=== PATIENT | female | born 1940 | race Caucasian/White ===

== ENCOUNTER 2017-12-30 00:58 | Outpatient (CLI) | payer OTHER, SELFPAY ==
--- NOTE | 2017-12-30 07:15 | DI.RAD_ITS ---
SYMPTOMS/DIAGNOSIS: TENDINITIS LT ROTATOR CUFF, M75.82, SHOULDER LESION FLUOROSCOPY OF THE LEFT SHOULDER: Fluoroscopy Time: .02 min Fluoroscopy was provided for Dr. Altamirano while performing a left shoulder injection. A single hardcopy image shows a needle projecting at the upper glenohumeral joint and injection of contrast. Severe degenerative changes of the glenohumeral joint are also seen. Please see procedure note for details.
[2017-12-30] MEDS: Omnipaque 300 MG/ML 10 ML BTL 1.5 ML IJ (11:06)
[2017-12-30] MEDS: Bupivacaine 0.5% Pres-Free 10 ML VIAL 5 ML IJ (11:07)
[2017-12-30] MEDS: methylPREDNISolone ACETATE 80 MG/ML VIAL IM (11:08)
--- NOTE | 2017-12-30 12:19 | W.PROCNOTE ---
Date of service: 12/30/17 Time of Service: 09:19 Procedure Note Date of procedure: 12/30/17 Procedure: Left Shoulder Injection Surgeon/Proceduralist/Physician: Srinivas Altamirano Procedure Diagnosis: Left glenohumeral arthritis Procedure Indications: Lisa has had persistent pain of the LEFT shoulder. Noninvasive measures have been tried. She has had a previous intra-articular shoulder injection which provided good relief. Due to recurrence of pain, an injection under fluoroscopy was recommended. I had discussed the risks of the procedure and the patient elected to proceed. Procedure Description: Lisa was greeted in the flouroscopy room. The correct side was identified and the consent was reviewed with the patient and signed. The patient was then placed in the supine position on the fluoroscopy table. The LEFT shoulder was then prepped with Chloraprep. The anterior injection starting point was identiifed by bony landmarks and fluoroscopy. The skin and soft tissue in the tract of the injection was anesthetized with 1% Lidocaine. A spinal needle was then inserted deep into the shoulder joint at the level of the recess between the glenoid and superior humeral head. A small amount of Omnipaque solution was injected to confirm intraarticular placement. Once confirmed, the shoulder was injected with 4cc of 0.5% Bupivicaine and 80mg of Depo-Medrol. A bandaid was placed on the injection site. The patient tolerated the procedure well and noted improvement in pre-injection pain.
== END 2017-12-30 01:18 ==
PROVIDERS: PCP Family Medicine; Visit Provider Student in an Organized Health Care Education/Training Program
DX: M25.512 Pain in left shoulder (principal); M75.82 Other shoulder lesions, left shoulder
CPT/HCPCS: 20610; 77002; J1040

== ENCOUNTER 2018-01-05 00:59 | Outpatient (CLI) | payer OTHER, SELFPAY ==
--- NOTE | 2018-01-05 11:57 | DI.MAMMO_ITS ---
SYMPTOMS/DIAGNOSIS: SCREENING, Z12.31 MAMMOGRAM: Mammograms were interpreted according to the usual protocol including computer analysis with CAD system, tomosynthesis and C view imaging. The breast tissue is heterogeneously radiodense which lowers the sensitivity of the study. There is no dominant mass. There are no suspicious calcifications and there has been no significant interval change when compared with prior images. SUMMARY: No evidence of malignancy, Category I, yearly screening mammography is recommended. Breast density Category C. MQSA ASSESSMENT OF FINDINGS: Negative. Category 1. Patient will receive a letter notifying them of these results. Bi-RADS category C. The breasts are heterogeneously dense, which may obscure small masses.
== END 2018-01-05 01:19 ==
PROVIDERS: PCP Family Medicine; Visit Provider Family Medicine
DX: Z12.31 Encounter for screening mammogram for malignant neoplasm of breast (principal)
CPT/HCPCS: 77063; 77067

== ENCOUNTER 2018-07-29 11:41 | Outpatient (CLI) | payer OTHER, SELFPAY ==
[2018-07-29 13:38] LABS: Vitamin B12 693 pg/mL (193-986)
== END 2018-07-29 12:01 ==
PROVIDERS: PCP Family Medicine; Visit Provider Family Medicine
DX: E53.8 Deficiency of other specified B group vitamins (principal)
CPT/HCPCS: 36415; 82607

== ENCOUNTER 2018-08-18 16:31 | Emergency (ER) | payer OTHER, SELFPAY ==
[2018-08-18 16:56] VITALS: BP 134/76; PULSE 76; RESP 16; TEMP 37.1; O2SAT 97
--- NOTE | 2018-08-18 17:05 | DI.US_ITS ---
SYMPTOM/DIAGNOSIS: FOCAL AREA OF REDNESS, SWELLING, PAIN LT LEG, ? CLOT, H/O SUPERFICIAL PHLEBITIS LEFT LOWER EXTREMITY ULTRASOUND: The deep veins of the left lower extremity show normal compression, augmentation and color flow. There is no evidence of a deep venous thrombus in the left lower extremity. There is non compressible echogenic thrombus seen in the short saphenous vein of the left lower extremity. Soft tissues are unremarkable IMPRESSION: 1. No evidence of a deep venous thrombus in the left lower extremity. 2. Superficial thrombophlebitis.
--- NOTE | 2018-08-18 17:06 | W.ED.GENAD ---
Discharge Plan Disposition Patient Disposition: HOME Condition: Good Discharge Details Chief Complaint: Vascular Clinical Impression: Acute superficial venous thrombosis of left lower extremity Primary Care Provider: iLliya Pedraza ED Provider: Cong Rosas Home Meds and New Rx's Prescriptions: No Action acyclovir 200 mg capsule 200 mg PO 5x/day PRNRF: 0 omeprazole 20 mg capsule,delayed release(DR/EC) 20 mg PO DAILY RF: 0 ADVIL 200 MG capsule 2 tab PO PRN RF: 0 Centrum Silver 1 EACH tablet 1 ea PO DAILY RF: 0 melatonin-pyridoxine (vit B6) 1 TAB tablet 1 tab PO HS PRN RF: 0 Discharge Instructions Instructions: Superficial Thrombophlebitis (ED) Additional Instructions: Please keep a warm compress on your leg as often as possible. Please keep it elevated and wrapped gently with an Alli wrap. Please take a daily 325 aspirin for the next month. Please follow-up closely with your primary care provider in the next week. If you notice any worsening of your symptoms, or any new symptoms such as vomiting, diarrhea, fever, chills, shortness of breath, chest pain, numbness, weakness, or fainting , please return immediately to the emergency department for reevaluation. Please follow up with your primary care provider as soon as possible for reassessment and reevaluation. As always, it was a pleasure participating in your medical care today. Referrals: Liliya Pedraza MD, [place] [Primary Care Provider] - Discharge Data Discharge Date/Time-TO BE ENTERED AT DEPARTURE: 08/18/18 18:03 Medical Decision Making This is a very pleasant 78-year-old female who presents for evaluation of blood clot. The patient had a left shoulder surgery performed at [facility] 1 week ago. In the last 24 hours she developed a small amount of redness, swelling and tenderness over 1 of her superficial varicosities over the left medial thigh. She has had a superficial clot in the past, and states that this feels identical. She is never been on a blood thinner in spite of her previous thrombophlebitis episodes. We will get an ultrasound to rule out any acute clot. There is no DVT, I feel she can be treated conservatively with aspirin, warm compresses, and elevation. With no clinical symptoms of fever, chills, tachycardia, or clinical evidence of significant cellulitis do not think that antibiotics are indicated at this time. Ultrasound results of the lower extremities show evidence of superficial clot at this time with no evidence of deep vein thrombosis. Patient continues to remain afebrile, with no tachycardia or chills. No deep calf tenderness. No current clinical indication for antibiotics at this time. Will recommend continued warm compresses, elevation, and gentle Alli wrap. We discussed red flags which to return including worsening of the redness, shortness of breath, or other complaints. We will recommend daily aspirin for the next month. I have extensively reviewed the treatment plan and discharge instructions with the patient and their family. I have addressed all patient concerns at this time. The patient and family was made aware of what symptoms to monitor for that would warrant a return to the emergency department. Discussed the plan with the patient and family, they demonstrate verbal understanding and agreement with our assessment and plan at this time. EXAM DATE/TIME: 08/18/2018 5:36 PM CLINICAL HISTORY: 78 years old, female; Pain; Leg, lower; Left TECHNIQUE: Imaging protocol: Real-time Duplex ultrasound of the Left Lower Extremity with 2-D farias scale, color Doppler flow and spectral waveform analysis. Limited exam focused on the left lower extremity veins. COMPARISON: No relevant prior studies available. FINDINGS: Left deep veins: Unremarkable. The common femoral, femoral, proximal profunda femoral and popliteal veins are patent without thrombus. Normal Doppler waveforms. Normal compressibility and/or augmentation response. Left superficial veins: Noncompressible echogenic thrombus is present within the short saphenous veins of the left lower leg. Soft tissues: Unremarkable. IMPRESSION: 1. No evidence of deep vein thrombosis. 2. Superficial thrombus in the short saphenous vein. Thank you for allowing us to participate in the care of your patient. HPI General Date/Time Provider Initiated Documentation: 08/18/18 16:35. HPI Narrative: This is a 78-year-old female with no significant past medical history except for a left shoulder repair performed at [facility] 1 week ago who presents today with left leg swelling. She states that the symptoms began less than 24 hours ago on her medial left calf. She has had superficial thrombophlebitis in the past, and states that this feels nearly identical. She has never been on blood thinners but has occasionally taking a daily aspirin when she has her superficial thrombophlebitis. She denies any complaints of PE, she denies any complaints of chest pain, shortness of breath, fatigue, lightheadedness, syncope or dizziness. She has no other complaints at this time. She is not currently on any blood thinners. She denies any fever or chills Related Data Home Medications Medication Instructions Recorded Confirmed Advil 2 tab PO PRN 07/05/12 08/18/18 melatonin-pyridoxine (vit B6) 1 tab PO HS PRN 06/22/13 08/18/18 Centrum Silver 1 ea PO DAILY 11/11/15 08/18/18 acyclovir 200 mg capsule 200 mg PO 5x/day PRN tab-cap 07/27/18 08/18/18 omeprazole 20 mg capsule,delayed 20 mg PO DAILY cap 07/27/18 08/18/18 release Allergies Allergy/AdvReac Type Severity Reaction Status Date / Time No Known Allergies Allergy Unverified 07/27/18 10:08 General Stated Complaint: Vascular JOSE: 3 Review of Systems Review of Systems All systems reviewed & are unremarkable except as noted in HPI and below PFSH Medical History Vitamin B 12 deficiency (Chronic 08/30/14) Trochanteric bursitis of left hip (Chronic 03/31/17) Tendinitis of left rotator cuff (Chronic 03/03/17) Osteopenia (Chronic) Incomplete tear of left rotator cuff (Chronic 09/28/16) Hyperlipidemia (Chronic 07/12/12) Hiatal hernia (Chronic 11/26/15) Barretts esophagus (Chronic 09/30/10) Arthritis of left shoulder region (Chronic 09/28/16) Carpal tunnel syndrome (Resolved) Inguinal lymphadenopathy (Resolved 06/11/17) Memory impairment (Resolved) Pain (Resolved) Verrucae vulgaris (Resolved) Alvarado's esophagus Gastroesophageal reflux disease Hiatal hernia Hyperlipidemia INTERNAL HEMORRHOIDS GRADE I Joint pain Memory impairment Osteopenia SIGMOID DIVERTICULOSIS Surgical History H/O cataract removal with insertion of prosthetic lens (Resolved) EGD - IV Sedation (11/26/15) Extraction of cataract (~2011) Open Carpal Tunnel release (~2008) Family History Mother Heart disease Myocardial infarction Father Heart disease Hypercholesterolemia Hyperlipidemia Stroke Sister Neoplasm Brother Neoplasm Brother Pre-diabetes Grandfather No problems noted. Grandfather No problems noted. Grandmother No problems noted. Grandmother No problems noted. Social History Smoking/Tobacco Use Status: Never Alcohol Intake: current Alcohol Intake frequency: a few times a week Drug use: Never Substance use type: does not use Household members: other Details: 2 current occupation: FARMING Pets and animals: Yes Pets and animals: cat(s) and dog(s) Duration: 45-60 minutes/day Frequency: 5-6 times per week Jennifer/Shinto: Jainism Special jennifer needs: No Do you feel safe at home: Yes Do you feel safe in your relationship?: Yes Exam Narrative Exam Narrative: 1.Const: Well-nourished, Well-developed, appearing stated age 2.Eyes: PERRL, no conjunctival injection, and symmetrical lids. 3.ENT: Atraumatic external nose and ears. Moist MM. Neck: Symmetric, trachea midline, No thyromegaly. 4.CVS: +S1/S2, No murmurs or gallops. Peripheral pulses 2+ and equal in all extremities. Brisk capillary refill in all extremities. 5.RESP: Unlabored respiratory effort. Clear to auscultation bilaterally. No wheezes rales or rhonchi 6.GI: Soft, Nontender/Nondistended, No hepatosplenomegaly. No guarding or rebound. 7.MSK: Normocephalic/Atraumatic, Extremities w/o deformity. No cyanosis or clubbing, left lower extremity demonstrates minimal erythema, venous tenderness over 1 of her superficial varicosities. Over the medial aspect of the calf. No pain in the posterior calf, or mid thigh. Dorsalis pedis and posterior tibial pulses +2 bilaterally, capillary refill brisk. Multiple varicosities all over both legs. Left shoulder is in a sling. Pulses are intact, no significant edema or tenderness. Appropriate postoperative examination. 8.Skin: Warm, Dry. No rashes or lesions. 9.Neuro: lurer II-XII grossly intact. Sensation grossly intact, no focal neurologic deficits. 10.Psych: (AAO) x3. Appropriate mood and affect Course Vital Signs Temperature 37.1 C 08/18/18 16:56 Pulse 76 08/18/18 16:56 Respiratory Rate 16 08/18/18 16:56 Blood Pressure 134/76 08/18/18 16:56 Pulse Oximetry 97 08/18/18 16:56 Temperature 37.1 C 08/18/18 16:56 Temperature Source Temporal Artery Scan 08/18/18 16:56 Pulse 76 08/18/18 16:56 Respiratory Rate 16 08/18/18 16:56 Blood Pressure 134/76 08/18/18 16:56 Blood Pressure Position Sitting 08/18/18 16:56 Pulse Oximetry 97 08/18/18 16:56 Oxygen Delivery Method Room Air 08/18/18 16:56 Oxygen Flow Rate 0 08/18/18 16:56 Pain Level 4 08/18/18 16:56
[2018-08-18 17:52] VITALS: RESP 16
--- NOTE | 2018-08-18 20:41 | DI.VRAD_ITS ---
EXAM: US Duplex Left Lower Extremity Veins, Limited EXAM DATE/TIME: 08/18/2018 5:36 PM CLINICAL HISTORY: 78 years old, female; Pain; Leg, lower; Left TECHNIQUE: Imaging protocol: Real-time Duplex ultrasound of the Left Lower Extremity with 2-D farias scale, color Doppler flow and spectral waveform analysis. Limited exam focused on the left lower extremity veins. COMPARISON: No relevant prior studies available. FINDINGS: Left deep veins: Unremarkable. The common femoral, femoral, proximal profunda femoral and popliteal veins are patent without thrombus. Normal Doppler waveforms. Normal compressibility and/or augmentation response. Left superficial veins: Noncompressible echogenic thrombus is present within the short saphenous veins of the left lower leg. Soft tissues: Unremarkable. IMPRESSION: 1. No evidence of deep vein thrombosis. 2. Superficial thrombus in the short saphenous vein. Dictated and Authenticated by: Guevara Jeff MD. Ordering:JAYLIN Gar MD
== END 2018-08-18 18:03 | disposition home or self-care (01) ==
LOC: ER 17:52
PROVIDERS: Emergency Provider Student in an Organized Health Care Education/Training Program; PCP Family Medicine
DX: I82.812 Embolism and thrombosis of superficial veins of left lower extremity (principal)
CPT/HCPCS: 99284; 93971

== ENCOUNTER → 2019-02-08 10:19 | Outpatient (BNVA) | payer OTHER, SELFPAY | PROVIDERS: PCP Family Medicine; Referring Provider Family Medicine; Visit Provider Surgery | DX: K22.70 Barrett's esophagus without dysplasia (principal); M85.80 Other specified disorders of bone density and structure, unspecified site; K44.9 Diaphragmatic hernia without obstruction or gangrene | CPT/HCPCS: 99202; 99213 ==

== ENCOUNTER 2019-02-10 02:01 | Outpatient (CLI) | payer OTHER, SELFPAY ==
[2019-02-10 10:47] LABS: HCT 42.7 % (36.0-46.0); HGB 13.6 g/dL (12.0-15.5); Mean Corp. HGB Concentration 31.9 g/dL (32.0-36.0); Mean Corpuscular Hemoglobin 30.2 pg (27.0-33.0); Mean Corpuscular Volume 94.9 fL (80-95); Platelet Count 282 x1000/uL (130-400); RBC Distribution Width 13.3 % (11.7-14.6); White Blood Cell Count 8.93 k/cumm (4.4-10.8)
[2019-02-10 11:03] LABS: ALT 24 U/L (14-59); AST 16 U/L (15-37); Alkaline Phosphatase 101 U/L (46-116); Anion Gap 7.5 mmol/L (3-11); BUN 18 mg/dL (7-18); CO2 28.5 mmol/L (21.0-32.0); CREATININE 0.87 mg/dL (0.55-1.02); Calcium 10.2 mg/dL (8.5-10.1); Calculated LDL 132 mg/dL; Chloride 103 mmol/L (98-107); Cholesterol 212 mg/dL (<200); Glucose 89 mg/dL (74-106); HDL Cholesterol 63 mg/dL (40-60); Potassium 4.5 mmol/L (3.5-5.1); Sodium 139 mmol/L (136-145); Total Protein 7.5 g/dL (6.4-8.2); Triglyceride 85 mg/dL (<150)
[2019-02-10 11:22] LABS: Bilirubin Negative (Negative); Blood Trace-intact (Negative); Clarity Clear (Clear); Glucose Negative (Negative); Ketones Negative (Negative); Leukocyte Esterase Negative (Negative); Nitrite Negative (Negative); Specific Gravity 1.015 (1.005-1.025); Urobilinogen 0.2 EU/dL (Up TO 0.2); pH 7.5 (5-8)
[2019-02-10 11:33] LABS: Bacteria Negative HPF (Negative); Crystals Negative HPF (Negative); Epithelial Cells Rare HPF (Negative); WBC 0-2 HPF (0-5)
[2019-02-10 11:34] LABS: C & S Indicated? No; Casts Negative LPF (Negative); Mucus Trace (Negative)
== END 2019-02-10 02:21 ==
PROVIDERS: Family Medicine; PCP Family Medicine; Visit Provider Family Medicine
DX: E78.5 Hyperlipidemia, unspecified (principal); R39.11 Hesitancy of micturition; K22.70 Barrett's esophagus without dysplasia; Z80.52 Family history of malignant neoplasm of bladder
CPT/HCPCS: 36415; 80053; 80061; 85027; 81003; 81015

== ENCOUNTER 2019-02-27 07:00 | Day surgery (SDC) | payer OTHER, SELFPAY ==
[2019-02-27 07:48] VITALS: BP 123/75; PULSE 60; RESP 16; TEMP 36.2; O2SAT 99
--- NOTE | 2019-02-27 08:30 | STOM_PTH ---
PATIENT: Lisa Glasgow LOC: [facility] U#:[id number] AGE/SX: 78/F ROOM: RE02/27/[address]: Kristina Negron : 1940 BED: DIS: 02/27/2019 SPEC #: [id number] RECD: 02/27/19 12:56 STATUS: CLARENCE REAntoine #: [id number] BOB: 02/27/19 08:[address]: Kristina Negron DEPT: Surgical Specimen RECD BY: Cindy Estrada ENTERED: 02/27/19 12:58 SP TYPE: STOMACH OTHR DR: Liliya Pedraza MD, DC Tissues: 1 - BIOPSY BOWEL 2 - STOMACH BIOPSY 3 - STOMACH BIOPSY 4 - ESOPHAGUS BIOPSY 5 - ESOPHAGUS BIOPSY Procedures: GROSS AND MICRO LEVEL 4 Comments: [id number]
[2019-02-27] MEDS: Lactated Ringers 1,000 ML 100 ML IV (08:38)
--- NOTE | 2019-02-27 08:40 | W.PM.DSUDISC ---
Discharge Plan Disposition Patient Disposition: HOME Condition: Good Discharge Details Reason For Visit: EGD and Bx Attending Provider: Kristina Negron Primary Care Provider: Liliya Pedraza Home Meds and New Rx's Prescriptions: Discontinued aspirin 325 mg tablet 325 mg PO DAILY RF: 0 No Action acyclovir 200 mg capsule 200 mg PO 5x/day PRNRF: 0 ginkgo biloba 40 mg tablet 20 mg PO BID RF: 0 omeprazole 20 mg capsule,delayed release(DR/EC) 20 mg PO DAILY RF: 0 Move Free Joint Health 750 mg-100 mg- 1.65 mg-108 mg tablet 1 tab PO DAILY RF: 0 Shingrix Adjuvant Component-PF Suspension 0.5 ml IM ONCE Qty: 0.5 RF: 0 Shingrix gE Antigen Component 50 mcg suspension for reconstitution 50 mcg IM ONCE Qty: 1 RF: 0 ADVIL 200 MG capsule 2 tab PO PRN RF: 0 Centrum Silver 1 EACH tablet 1 ea PO DAILY RF: 0 Discharge Instructions Instructions: Gastroesophageal Reflux Disease (GEN) Additional Instructions: Findings:poss geremiastt's- path pd stop ASA Continue with lifestyle modifications: no alcohol, tobacco products, Aspirin or NSAID's (ibuprofen, Motrin, Naprosyn, aleve, etc). try to limit: soda pop/any carbonated beverages, caffeine (including tea & chocolate), and acidic foods, (tomatoes, citrus, onions, peppermints) spicy or fried/fatty foods. Do not lie down for 30 minutes after eating, and do not eat 2 hours prior to bedtime. Avoid wearing tight fitting clothing/ belts Follow up: will send a letter in 2-3 wks time w/ Bx results [facility] will call to schedule US of LE. Please call if you develop: fevers >101.5 Nausea or Vomiting Abdominal pain that is not transient DAY SURGERY UNIT POST COLONOSCOPY INSTRUCTIONS 1. Because there will be medication in your system for the next 24 hours, you may feel a little sleepy. Your coordination will be affected. Therefore: a. Do not drive or operate dangerous equipment for 24 hours. b. Do not drink alcohol beverages for 24 hours (not even beer). c. Plan to go home and rest for the day. 2. Generally there are no restrictions on your activity after a day or so has gone by, but you may feel a bit fatigued for a few days. 3 After you arrive home you may have a light meal and return to a normal diet as you can tolerate it without feeling sick to your stomach. 4. After surgery, you may feel pain or discomfort. This should be only transient, but if it persists please contact your doctor. 5. If there are any questions regarding the findings of your procedure, please feel free to contact your doctor. 6. If you are unable to contact your doctor with a problem, contact the hospital at [phone]. 7. Continue all your regular medications unless directed otherwise. I understand the above instructions and have no questions. Signature of Patient or Responsible Adult Escort Date/Time Name of Responsible Adult Escort Signature of Nurse Date/Time Activity:: no strenuous activity x 24 hrs Diet:: sm light meals x 24 hrs Discharge Orders Discharge Orders: Discharge Order (Routine); Ordered 02/27/19 Ordered By: Kristnia Negron
--- NOTE | 2019-02-27 08:42 | W.PM.ENDDOP ---
Date of service: 02/27/19 Time of Service: 08:43 Endoscopy Report DATE OF PROCEDURE: 02/27/19 PRE-OP DIAGNOSIS: barett's - path pd /esopahgitis POST-OP DIAGNOSIS: other (esophagitis/poss pearson's ) PROCEDURE: EGD with biopsy SURGEON: Kristina Negron ANESTHESIA: GETA ESTIMATED BLOOD LOSS: 1 PATHOLOGY: other COMPLICATIONS: None DISPOSITION: same day PROCEDURE DESCRIPTION: After informed consent was obtained the patient was take to the procedure room and placed in a supine position. Monitors were applied and a time out was done. The patients name, date of , procedure type, allergies to medications and metal in their body was reviewed. A bite block was placed and the patient was sedated. Once sedated and comfortable the gastroscope was advanced through the oropharynx which was grossly normal into the esophagus. The proximal and mid-esophagus were nl. In the distal esophagus there was mild inflammation noted. There are no ulcers varices diverticula or strictures apparent the scope was advanced into the stomach and through the pylorus into the 3rd portion of the duodenum. The duodenum was noted to be normal. Biopsies were done . All specimen is retrieved and no bleeding is noted. the scope was retracted back into the stomach and biopsies were done to rule out H. pylori. There were no ulcers. The stomach has whitish flat 1 mm scattered macules throughout its entirety. The scope was retroflexed. The cardia and fundus were noted to be normal. There is no hiatal hernia noted. The scope was retracted back into the esophagus and biopsies were done of the GE junction to rule out Pearson's. The Z line was regular. The scope was removed and the patient was woken up and taken back to [facility] in stable condition. Follow up: We will send a letter with biopsy results and when to repeat scope.
[2019-02-27 09:16] VITALS: BP 115/66; PULSE 53; RESP 16; TEMP 36.3; O2SAT 96
== END 2019-02-27 09:29 | disposition home or self-care (01) ==
PROVIDERS: PCP Family Medicine; Visit Provider Surgery
PROC: 0DJ68ZZ Inspection of Stomach, Via Natural or Artificial Opening Endoscopic (ICD-10-PCS; CPT 43235; principal; 2019-02-27 08:15)
DX: K22.70 Barrett's esophagus without dysplasia (principal); K21.0 Gastro-esophageal reflux disease with esophagitis
CPT/HCPCS: 43239; 88305

== ENCOUNTER → 2022-01-08 09:31 | Outpatient (BNVA) | payer MEDICARE, SELFPAY | PROVIDERS: PCP Family Medicine; Referring Provider Family Medicine; Visit Provider Student in an Organized Health Care Education/Training Program | DX: M70.62 Trochanteric bursitis, left hip (principal) | CPT/HCPCS: 99213 ==

== ENCOUNTER 2022-05-21 14:39 | Outpatient (REF) | payer MEDICARE, SELFPAY | END 2022-05-21 14:40 | disposition home or self-care (01) | LOC: LBN 14:39 | PROVIDERS: PCP Family Medicine; Visit Provider Nurse Practitioner Family | DX: N94.818 Other vulvodynia (principal) | CPT/HCPCS: 87480; 87510; 87660 ==

== ENCOUNTER → 2023-03-25 11:13 | Outpatient (BNVA) | payer MEDICARE, SELFPAY | PROVIDERS: PCP Family Medicine; Referring Provider Family Medicine; Visit Provider Podiatrist | DX: L84 Corns and callosities (principal); L60.3 Nail dystrophy; G62.89 Other specified polyneuropathies; R09.89 Other specified symptoms and signs involving the circulatory and respiratory systems; R60.0 Localized edema; R23.1 Pallor; L65.9 Nonscarring hair loss, unspecified; M79.674 Pain in right toe(s); M79.675 Pain in left toe(s); R20.2 Paresthesia of skin; R20.9 Unspecified disturbances of skin sensation | CPT/HCPCS: 11056; 11721 ==

== ENCOUNTER 2023-05-07 09:31 | Outpatient (CLI) | payer MEDICARE, SELFPAY ==
--- NOTE | 2023-05-07 09:36 | DI.RAD_ITS ---
Exam(s) XR KNEE RT 3V AP,LAT,ANU EXAM: XR KNEE RT 3V AP,LAT,ANU CLINICAL HISTORY: RIGHT KNEE PAIN. TECHNIQUE: 2D digital imaging was performed. Three views. COMPARISON: No exams were available for comparison FINDINGS: BONES: No acute fracture is present. No bony destructive lesion is seen. JOINTS: Severe narrowing the lateral femoral tibial joint space. Periarticular spurring. Mild spurr ing at the medial femoral tibial joint and patellofemoral joint. No joint effusion is seen. SOFT TISSUE: Prominent venous varicosities lateral aspect of the knee. IMPRESSION: Degenerative changes, greatest of the lateral femoral tibial joint. DATA REPOSITORY: RADIATION DOSE DELIVERED:
== END 2023-05-07 09:32 | disposition home or self-care (01) ==
LOC: DIORS 09:31
PROVIDERS: PCP Family Medicine; Referring Provider Family Medicine
DX: M17.11 Unilateral primary osteoarthritis, right knee; W19.XXXA Unspecified fall, initial encounter
CPT/HCPCS: 20610; 73562; J1040

== ENCOUNTER → 2023-07-28 11:12 | Outpatient (BNVA) | payer MEDICARE, SELFPAY | PROVIDERS: PCP Family Medicine; Referring Provider Family Medicine; Visit Provider Podiatrist | DX: L60.3 Nail dystrophy (principal); L84 Corns and callosities; M79.671 Pain in right foot; M79.672 Pain in left foot | CPT/HCPCS: 17110 ==

== ENCOUNTER → 2024-02-21 14:00 | Outpatient (BNVA) | payer MEDICARE, SELFPAY | PROVIDERS: PCP Family Medicine; Referring Provider Family Medicine; Visit Provider Surgery | DX: K22.70 Barrett's esophagus without dysplasia (principal) | CPT/HCPCS: 99214 ==

== ENCOUNTER → 2024-04-17 08:56 | Outpatient (BNVA) | payer MEDICARE, SELFPAY | PROVIDERS: PCP Family Medicine; Referring Provider Family Medicine | DX: M17.11 Unilateral primary osteoarthritis, right knee (principal) | CPT/HCPCS: 20610; J1010 ==

== ENCOUNTER 2024-07-27 00:36 | Outpatient (CLI) | payer MEDICARE, SELFPAY ==
--- NOTE | 2024-07-27 09:56 | DI.RAD_ITS ---
Exam(s) XR FOOT RT COMPLETE EXAM: XR FOOT RT COMPLETE CLINICAL HISTORY: Right foot pain,m79.671. TECHNIQUE: 2D digital imaging was performed. COMPARISON: No exams were available for comparison FINDINGS: 3 views No evidence of acute fracture or diastasis of the Lisfranc joint. There is prominent hallux valgus e vident. There are also degenerative changes at the level of the 2nd through 5th tarsometatarsal join ts; less so at the great toe TMT joint. Articulations more proximal in the foot appear unremarkable and there is no pes planus. There is a tiny inferior calcaneal spur. IMPRESSION: Prominent hallux valgus. Mild degenerative changes in the great toe metatarsophalangeal joint. Degenerative changes in the tarsometatarsal joints of the midfoot. No diastasis of the Lisfranc join t. DATA REPOSITORY: RADIATION DOSE DELIVERED:
== END 2024-07-27 00:56 ==
LOC: DI 00:36
PROVIDERS: PCP Family Medicine; Visit Provider Podiatrist
DX: M79.671 Pain in right foot (principal); G60.8 Other hereditary and idiopathic neuropathies; L60.3 Nail dystrophy; L84 Corns and callosities; L85.8 Other specified epidermal thickening; M79.672 Pain in left foot; I83.93 Asymptomatic varicose veins of bilateral lower extremities; E53.8 Deficiency of other specified B group vitamins; R20.8 Other disturbances of skin sensation; L65.9 Nonscarring hair loss, unspecified; G62.9 Polyneuropathy, unspecified; L60.2 Onychogryphosis; R20.2 Paresthesia of skin
CPT/HCPCS: 11719; 11720; 17110; 20600; J0702; J1100; 73630

== ENCOUNTER → 2024-09-07 09:57 | Outpatient (BNVA) | payer MEDICARE, SELFPAY | PROVIDERS: PCP Family Medicine; Referring Provider Family Medicine; Visit Provider Podiatrist | DX: M25.571 Pain in right ankle and joints of right foot (principal); M19.071 Primary osteoarthritis, right ankle and foot; G60.8 Other hereditary and idiopathic neuropathies; L60.3 Nail dystrophy; L84 Corns and callosities; L85.8 Other specified epidermal thickening | CPT/HCPCS: 99214; J1100; J0702; 20600 ==

== ENCOUNTER → 2024-10-12 10:28 | Outpatient (BNVA) | payer MEDICARE, SELFPAY | PROVIDERS: PCP Family Medicine; Referring Provider Family Medicine; Visit Provider Podiatrist | DX: M25.571 Pain in right ankle and joints of right foot (principal); M19.071 Primary osteoarthritis, right ankle and foot; G60.8 Other hereditary and idiopathic neuropathies; L60.3 Nail dystrophy; L84 Corns and callosities; I87.2 Venous insufficiency (chronic) (peripheral) | CPT/HCPCS: J1100; J0702; 20600 ==

== ENCOUNTER → 2024-11-23 13:51 | Outpatient (BNVA) | payer MEDICARE, SELFPAY | PROVIDERS: PCP Family Medicine; Referring Provider Family Medicine; Visit Provider Podiatrist | DX: M25.571 Pain in right ankle and joints of right foot (principal); G60.8 Other hereditary and idiopathic neuropathies; L60.3 Nail dystrophy; L84 Corns and callosities; M19.071 Primary osteoarthritis, right ankle and foot; I87.2 Venous insufficiency (chronic) (peripheral); G57.91 Unspecified mononeuropathy of right lower limb; M72.2 Plantar fascial fibromatosis | CPT/HCPCS: 99214 ==

== ENCOUNTER → 2024-12-28 10:02 | Outpatient (BNVA) | payer MEDICARE, SELFPAY | PROVIDERS: PCP Family Medicine; Referring Provider Family Medicine; Visit Provider Podiatrist | DX: M25.571 Pain in right ankle and joints of right foot (principal); M19.071 Primary osteoarthritis, right ankle and foot; G60.8 Other hereditary and idiopathic neuropathies; L60.3 Nail dystrophy; L84 Corns and callosities; I87.2 Venous insufficiency (chronic) (peripheral); G57.91 Unspecified mononeuropathy of right lower limb | CPT/HCPCS: 20600; J0702; J1100 ==